=== PATIENT | female | born 2000 | race Caucasian/White ===

== ENCOUNTER 2019-08-27 20:34 | Emergency (ER) | payer OTHER ==
[~2019-08-27] VITALS: Ht 157.5 cm; Wt 86.2 kg
[~2019-08-27 20:34] MED LIST: IBUP-1673 PO; IBUP200T44 PO; NAPR500T8 PO; ONDA8TAB12 PO; TRAM50TA PO
[2019-08-27 20:35] VITALS: BP 130/88
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
--- NOTE | 2019-08-27 21:11 | RAD ---
Two-view chest dated 08/27/2019. Comparison made to 02/15/2015. Clinical data indication: Cough. FINDINGS: PA and lateral views obtained. Heart and mediastinal contours are within normal limits. Lungs are clear. No consolidation or pleural effusion. No pneumothorax. IMPRESSION: No acute findings. Electronically signed by: Ayush Rosales MD (08/27/2019 9:08 PM) [facility]
[2019-08-27 22:03] LABS: BGAS PH 7.4 (7.35-7.45)
[2019-08-27] MEDS ORDERED: PROM118S9 PO (23:27)
== END 2019-08-27 23:30 | disposition home or self-care (01) ==
LOC: ER 20:34
DX: T59.891A Toxic effect of other specified gases, fumes and vapors, accidental (unintentional), initial encounter (principal); J68.8 Other respiratory conditions due to chemicals, gases, fumes and vapors; J45.909 Unspecified asthma, uncomplicated; Z88.1 Allergy status to other antibiotic agents; Z91.013 Allergy to seafood; Y92.148 Other place in prison as the place of occurrence of the external cause
CPT/HCPCS: 36415; 71046; 82375; 82803; 99285-25